=== PATIENT | female | born 1980 | race Two or more races ===

== ENCOUNTER 2017-12-16 22:34 | Emergency (ER) | payer OTHER ==
[~2017-12-16] VITALS: Ht 167.6 cm; Wt 89.8 kg
[~2017-12-16 22:34] MED LIST: GLUMETZA1000 MG; LEVEMIR FL100 UNIT/1; LEVSIN/SL0.125 MG SL; MOTRIN800 MG PO; ORPH100T PO; PEPCID20 MG PO; PEPCID40 MG PO; ZOFRAN8 MG PO; ZYRTEC10 M3 PO
[2017-12-16] MEDS ORDERED: COZAAR25 MG (23:39)
[2017-12-16] MEDS ORDERED: PROVENTIL HFA6.7 GM (23:40)
[2017-12-16] MEDS ORDERED: RESTORIL30 M1 (23:40)
[2017-12-16] MEDS ORDERED: [UNRECOGNIZED DRUG - OTHER] (23:41)
== END 2017-12-17 10:56 | disposition home or self-care (01) ==
LOC: ER 22:34
DX: J45.998 Other asthma (principal); R19.7 Diarrhea, unspecified; E11.65 Type 2 diabetes mellitus with hyperglycemia

== ENCOUNTER 2018-04-01 15:45 | Emergency (ER) | payer OTHER ==
[~2018-04-01] VITALS: Ht 167.6 cm; Wt 84.4 kg
[~2018-04-01 15:45] MED LIST changes: +COZAAR25 MG; +PROVENTIL HFA6.7 GM; +RESTORIL30 M1; +[UNRECOGNIZED DRUG - OTHER]
[2018-04-01] MEDS ORDERED: GLIPIZIDE ER5 MG (17:25)
[2018-04-01] MEDS ORDERED: LATUDA20 MG (17:25)
[2018-04-01] MEDS ORDERED: PROZAC20 MG (17:26)
[2018-04-01] MEDS ORDERED: CLONAZEPAM0.25 MG (17:26)
== END 2018-04-02 00:11 | disposition home or self-care (01) ==
LOC: ER 15:45
DX: L02.426 Furuncle of left lower limb (principal); L02.425 Furuncle of right lower limb; E11.9 Type 2 diabetes mellitus without complications

== ENCOUNTER 2018-05-02 10:12 | Outpatient (CLI) | payer OTHER ==
[~2018-05-02 10:12] MED LIST changes: +CLONAZEPAM0.25 MG; +GLIPIZIDE ER5 MG; +LATUDA20 MG; +PROZAC20 MG
== END 2018-05-02 10:15 | disposition home or self-care (01) ==
LOC: RAD 10:12
DX: F33.3 Major depressive disorder, recurrent, severe with psychotic symptoms (principal); I11.9 Hypertensive heart disease without heart failure; E11.42 Type 2 diabetes mellitus with diabetic polyneuropathy; E11.69 Type 2 diabetes mellitus with other specified complication

== ENCOUNTER 2018-09-19 12:38 | Outpatient (CLI) | payer OTHER | END 2018-09-19 14:22 | disposition home or self-care (01) | LOC: RAD 12:38 | DX: M54.5 Low back pain (principal) ==

== ENCOUNTER 2019-07-05 10:36 | Outpatient (CLI) | payer OTHER | END 2019-07-05 10:44 | disposition home or self-care (01) | LOC: RAD 10:36 | DX: I11.9 Hypertensive heart disease without heart failure (principal); R80.8 Other proteinuria; E78.49 Other hyperlipidemia; Z79.4 Long term (current) use of insulin; E55.9 Vitamin D deficiency, unspecified; E11.42 Type 2 diabetes mellitus with diabetic polyneuropathy ==

== ENCOUNTER 2020-05-26 12:47 | Outpatient (CLI) | payer OTHER | END 2020-05-26 13:04 | disposition home or self-care (01) | LOC: MAMO-SONO 12:47 | PROVIDERS: ATTEND Internal Medicine | DX: Z12.31 Encounter for screening mammogram for malignant neoplasm of breast (principal) ==

== ENCOUNTER 2020-10-15 12:02 | Outpatient (CLI) | payer OTHER | END 2020-10-15 12:11 | disposition home or self-care (01) | LOC: RAD 12:02 | PROVIDERS: ATTEND Orthopaedic Surgery | DX: M16.0 Bilateral primary osteoarthritis of hip (principal) ==

== ENCOUNTER 2021-01-21 12:26 | Outpatient (CLI) | payer OTHER | END 2021-01-21 12:37 | disposition home or self-care (01) | LOC: SONOGRAMA 12:26 | DX: R10.2 Pelvic and perineal pain (principal) ==

== ENCOUNTER → 2021-10-13 09:22 | Outpatient (CLI) | payer OTHER | END | disposition home or self-care (01) | LOC: NUCLEAR 09:22 | PROVIDERS: ATTEND Internal Medicine Rheumatology | DX: M81.0 Age-related osteoporosis without current pathological fracture (principal); Z88.0 Allergy status to penicillin; Z91.013 Allergy to seafood ==

== ENCOUNTER 2024-02-19 13:30 | Emergency (ER) | payer OTHER ==
[~2024-02-19] VITALS: Ht 167.6 cm; Wt 80.7 kg
[2024-02-19] MEDS ORDERED: 0.9 % SODIUM CHLORIDE 1,000 ML IV ONE (16:00)
[2024-02-19] MEDS ORDERED: ENALAPRILAT DIHYDRATE 1.25 MG/ML VIAL IV ONE (16:00)
[2024-02-19] MEDS ORDERED: INSULIN REGULAR, HUMAN 1,000 UNIT/10 ML UNITS IV ONE (16:30)
[2024-02-19 16:53] LABS: HEMATOCRIT 36.1 % (36.0-45.00); HEMOGLOBIN 12.2 g/dL (12.0-15.00); MEAN CELL VOLUME 83.3 fL (80.00-100.00); MEAN CORPUSCULAR HEMOGLOBIN 28.1 pg (27.00-32.0); MEAN CORPUSCULAR HGB CONC 33.7 g/dl (32.0-36.0); PLATELET COUNT 347 K/uL (150-450); RED BLOOD COUNT 4.33 M/uL (4.00-6.00)
[2024-02-19 17:05] LABS: ABG PH 7.391 (7.35-7.45); ABG PO2 110.2 mmHg (80-100); ABG pCO2 29.6 mmHg (35-45); BASE EXCESS -5.9 mmol/l; BICARBONATE 17.6 mmol/l (23-25); SaO2 98.1 %; Tco2 18.5 mmol/l; allen test SATISFACTORY; o2 21 %; puncture site RADIAL LEFT
[2024-02-19 17:16] LABS: PH,URINE 5.5 (5.0-8.0); URINE APPEARANCE Clear; URINE BILIRRUBIN Negative (NEGATIVE); URINE BLOOD Trace; URINE COLOR Yellow; URINE LEUKOCYTE Moderate; URINE NITRATE Negative; URINE PROTEIN 30 (NEGATIVE); URINE UROBILINOGEN 0.2 E.U./dl
[2024-02-19 17:19] LABS: URINE BACTERIA 2808.3 uL (0.0-1933); URINE RBC 6.5 uL (0.0-20.8); URINE WBC 116.4 uL (0.0-23.2)
[2024-02-19 17:22] LABS: ALBUMIN 2.8 gm/dL (3.4-5.0); BILIRUBIN TOTAL 0.36 mg/dL (0.3-1.2); CALCIUM 9.3 mg/dL (8.5-10.1); CREATININE SERUM 1.22 mg/dL (0.55-1.02); GFR 48.1; GLOBULINA 4.9 G/DL (2.4-3.5); POTASSIUM 3.9 mEq/L (3.5-5.1); TOTAL PROTEIN 7.7 gm/dL (6.4-8.2)
[2024-02-19 17:42] LABS: URINE GLUCOSE >=1000 MG/DL (NEGATIVE); URINE KETONE 40 (NEGATIVE)
[2024-02-19 17:47] LABS: URINE MUCUS SCANT; URINE YEAST FEW /hpf
[2024-02-19] MEDS ORDERED: METRONIDAZOLE/SODIUM CHLORIDE 500 MG/100 ML PIGGYBACK IV ONE (19:00)
[2024-02-19] MEDS ORDERED: FLUCONAZOLE 150 MG TABLET PO ONE (19:00)
[2024-02-19] MEDS ORDERED: CIPROFLOXACIN IN 5 % DEXTROSE 400 MG/200 ML PIGGYBAG IV ONE (19:15)
[2024-02-19] MEDS ORDERED: BACTRIM DS TAB1 EACH PO (22:09)
[2024-02-19] MEDS ORDERED: GLIPIZIDE XL10 MG PO (22:09)
== END 2024-02-19 22:38 | disposition home or self-care (01) ==
LOC: ER 13:32
PROVIDERS: Nurse Practitioner Family
DX: B37.31 Acute candidiasis of vulva and vagina (principal); N76.0 Acute vaginitis; I10 Essential (primary) hypertension; E11.9 Type 2 diabetes mellitus without complications; Z79.4 Long term (current) use of insulin; Z88.0 Allergy status to penicillin; Z91.013 Allergy to seafood
CPT/HCPCS: 36415; 82803; 93005; 96365; 99282; J0744; J1815; J3490 ×2; J7030